=== PATIENT | female | born 1945 | race Caucasian/White ===

== ENCOUNTER → 2017-02-14 | Outpatient (CLI) | payer OTHER ==
[~2017-02-14] MED LIST: ASPIRIN PO; CALCIUM 500 + D1 TAB PO; ESCITALOPRAM OX10 MG PO; GLUCOSAMINE; IMITREX PO; KEFLEX PO; LISINOPRIL5 MG PO; METOPROLOL SUCC50 MG PO; MULTI-VITAMIN1 TAB PO; OXAPROZIN600 MG PO; ZYRTEC PO
--- NOTE | ~2017-02-14 | US85 ---
[facility]. [facility] A Service of [facility] & [facility] RADIOLOGY TEXT RESULTS PATIENT: LUCINA RAMOS LOCATION: [facility] : 47 UNIT #: [id number] AGE: [address]: Bhumi Barillas APRN SEX: F ORDER DR: [id number] [address] [address] [id number] O MR#: [id number] Acc #: [id number] NAME: LUCINA RAMOS : 1945 SEX: F STUDY DATE/TIME: 02/14/2017 15:53 UNIT: [facility] ROOM: STUDY DESCRIPTION: [facility] Attending Physician: Bhumi Barillas A.P.R.N. Referring Physician: Bhumi Barillas A.P.R.N. Ordering Physician: Bhumi Barillas A.P.R.N. Primary Care Physician: Arjun Zarate M.D. MEDICAL IMAGING REPORT This report is preliminary unless electronic signature is present. EXAM Left lower extremity venous duplex 02/14/2017 HISTORY Left lower extremity pain and redness for 1 month. Evaluate for deep vein thrombosis. TECHNIQUE Venous ultrasound examination of the left lower extremity was performed using grayscale, spectral Doppler and color flow Doppler imaging. FINDINGS The examination is negative. There is no evidence of left lower extremity deep venous thrombus from the groin to the lower calf. Visualized greater saphenous vein is also patent. IMPRESSION Negative examination. No evidence of left lower extremity deep venous thrombosis. Dictated by... Jonel Chan M.D. THIS IS AN ELECTRONICALLY VERIFIED REPORT Jonel Chan M.D. at 02/15/2017 2:27 PM MARCE/mable TD: 02/14/2017 18:45 JOB #: [id number] MEDICAL IMAGING REPORT Page 1 of 1
== END | disposition home or self-care (01) ==
LOC: SRAD 15:47
DX: M79.89 Other specified soft tissue disorders (principal); L53.9 Erythematous condition, unspecified
CPT/HCPCS: 93971

== ENCOUNTER → 2017-05-17 | Outpatient (CLI) | payer OTHER ==
--- NOTE | ~2017-05-17 | MY29 ---
[facility] A Service of [facility] RADIOLOGY TEXT RESULTS PATIENT: LUCINA RAMOS LOCATION: [facility] : 47 UNIT #: [id number] AGE: [address]: Arjun Zarate MD SEX: F ORDER DR: [id number] [facility] [address] [place], [place] [address] [id number] O MR#: [id number] Acc #: [id number] NAME: LUCINA RAMOS : 1945 SEX: F STUDY DATE/TIME: 05/17/2017 10:30 UNIT: [facility] ROOM: STUDY DESCRIPTION: MY CELESTE SCREENING W/ CAD BILAT Attending Physician: Arjun Zarate M.D. Referring Physician: Arjun Zarate M.D. Ordering Physician: Arjun Zarate M.D. Primary Care Physician: Arjun Zarate M.D. MEDICAL IMAGING REPORT This report is preliminary unless electronic signature is present EXAM Digital screening mammogram 05/17/2017 HISTORY 71-year-old woman positive family history, mother age 91. Annual screen. COMPARISON Mammograms date to 01/18/2006 with most recent 04/20/2016 FINDINGS Digital imaging of each breast was completed utilizing a two-view examination of each breast in craniocaudal and mediolateral-oblique projections. Review and interpretation of digital mammograms include a second review in conjunction with FDA-approved CAD device. There is a normal parenchymal presentation bilaterally consistent with the patient's age. There are no breast masses imaged and no parenchymal asymmetry is visualized. There are no suspicious microcalcifications and I see no focal architectural disturbance. IMPRESSION Negative screening digital mammogram. One-year followup recommended. Patients over the age of 40 are entered into a reminder system with target due date for the next mammogram. A result letter will also be sent to the patient. BIRADS: 1 Negative Dictated by... Maikel Ott M.D. [facility] A Service of [facility] RADIOLOGY TEXT RESULTS PATIENT: LUCINA RAMOS LOCATION: [facility] : 47 UNIT #: [id number] AGE: [address]: Arjun Zarate MD SEX: F ORDER DR: THIS IS AN ELECTRONICALLY VERIFIED REPORT Maikel Ott M.D. at 05/17/2017 3:40 PM JESUS/roya TD: 05/17/2017 14:33 JOB #: [id number] MEDICAL IMAGING REPORT Page 1 of 1 COPY
== END | disposition home or self-care (01) ==
LOC: CWCC 10:07
DX: Z12.31 Encounter for screening mammogram for malignant neoplasm of breast (principal); Z80.3 Family history of malignant neoplasm of breast
CPT/HCPCS: G0202

== ENCOUNTER 2017-05-27 07:17 | Emergency (ER) | payer OTHER ==
[~2017-05-27] VITALS: Ht 162.6 cm; Wt 95.2 kg
== END 2017-05-27 09:03 | disposition home or self-care (01) ==
LOC: CED 07:17
DX: J01.90 Acute sinusitis, unspecified (principal); I10 Essential (primary) hypertension; G43.909 Migraine, unspecified, not intractable, without status migrainosus; Z90.710 Acquired absence of both cervix and uterus; Z79.899 Other long term (current) drug therapy; Z79.82 Long term (current) use of aspirin
CPT/HCPCS: 99283